=== PATIENT | male | born 1955 | race Caucasian/White ===

== ENCOUNTER 2019-01-03 01:11 | Observation (INO) | payer MEDICAID, OTHER ==
[~2019-01-03] VITALS: Ht 193 cm; Wt 106.8 kg
[2019-01-03] VITALS (17 sets, daily range): BP systolic 144–195; BP diastolic 9–106
[2019-01-03] MEDS ORDERED: aspirin 81mg tab.chew PO ONE (01:20)
[2019-01-03] MEDS ORDERED: ondansetron/PF 4mg/2ml inj IV ONE (01:25)
[2019-01-03] MEDS ORDERED: morphine 4 MG/ML inj SYRINge IV ONE (01:25)
[2019-01-03] MEDS ORDERED: CLOP75TA15 PO (01:31)
[2019-01-03] MEDS ORDERED: HYDR-3972 PO (01:31)
[2019-01-03] MEDS ORDERED: HYDR8TAB16 PO (01:31)
[2019-01-03] MEDS ORDERED: BUDE10.2 INH (01:31)
[2019-01-03] MEDS ORDERED: AMLO5TAB4 PO (01:31)
[2019-01-03] MEDS ORDERED: ASPI81TA52 PO (01:31)
[2019-01-03] MEDS ORDERED: ALB0.5UD IH (01:31)
[2019-01-03] MEDS ORDERED: CARV-49 PO (01:31)
[2019-01-03] MEDS ORDERED: ISOS30TA6 PO (01:31)
[2019-01-03 02:02] LABS: ALANINE AMINOTRANSFERASE 24 U/L (12-78); ALBUMIN 3.9 G/DL (3.4-5.0); ALKALINE PHOSPHATASE 125 IU/L (46-116); ANION GAP 10 (8-16); ASPARTATE AMINO TRANSFERASE 22 U/L (10-37); BILIRUBIN,TOTAL 0.6 MG/DL (0.1-1.0); BLOOD UREA NITROGEN 7 MG/DL (7-18); BUN/CREATININE RATIO 7.9 (5.4-32.0); CALCIUM 8.5 MG/DL (8.5-10.1); CHLORIDE 106 MMOL/L (99-107); CREATININE 0.89 MG/DL (0.60-1.10); GLUCOSE 87 MG/DL (70-104); POTASSIUM 4.3 MMOL/L (3.5-5.1); SODIUM 141 MMOL/L (135-145); TOTAL CARBON DIOXIDE 25.3 MMOL/L (24-32); TOTAL PROTEIN 7.7 G/DL (6.4-8.2); eGFR 87 ML/MIN
[2019-01-03 02:09] LABS: MAGNESIUM 2.1 MG/DL (1.5-2.4)
[2019-01-03] MEDS ORDERED: metoprolol tartrate 1mg/ml inj IV PRN (02:15)
[2019-01-03] MEDS ORDERED: magnesium 4gm in 100ml NS 100 ML IV PRN (02:15)
[2019-01-03] MEDS ORDERED: nitroGLYCERIN 0.4mg SUBLingual tab SL PRN (02:15)
[2019-01-03] MEDS ORDERED: morphine 2 MG/ML inj. syringe IV PRN (02:15)
[2019-01-03] MEDS ORDERED: magnesium hydroxide 30ml (MOM) UD suspension PO PRN (02:15)
[2019-01-03] MEDS ORDERED: aminophylline 250mg/10ml inj. IV PRN (02:15)
[2019-01-03] MEDS ORDERED: normal saline 1000ml 1,000 ML IV SCH (02:15)
[2019-01-03] MEDS ORDERED: magnesium 2GM in 50ml NS 50 ML IV PRN (02:15)
[2019-01-03] MEDS ORDERED: potassium Cl 20 mEq SR tablet PO PRN ×2 (02:15)
[2019-01-03] MEDS ORDERED: metoclopramide 5 mg/ml inj IV PRN (02:15)
[2019-01-03] MEDS ORDERED: regadenoson 0.4mg/5ml syringe IV ONE (02:15)
[2019-01-03] MEDS ORDERED: nitroGLYCERIN-Tridil 50MG/D5W 250 ML IV SCH ×2 (02:15→02:20)
[2019-01-03] MEDS ORDERED: potassium CL 10mEq/100ml bag 100 ML IV PRN ×2 (02:15)
[2019-01-03] MEDS ORDERED: acetaminophen 325mg tablet PO PRN ×2 (02:15)
[2019-01-03] MEDS ORDERED: ondansetron/PF 4mg/2ml inj IV PRN (02:15)
[2019-01-03] MEDS ORDERED: magnesium Cl slow-release 64mg tablet PO PRN (02:15)
[2019-01-03] MEDS ORDERED: mag hydrox/Alum hydrox/simeth 30ml oral suspension PO PRN (02:15)
[2019-01-03 02:21] LABS: BASOPHILS # (AUTO) 0.1 X10'3 (0-0.2); BASOPHILS % (AUTO) 1.3 % (0-1); EOSINOPHILS % (AUTO) 0.6 % (0-6); HEMATOCRIT 37.1 % (42.0-52.0); HEMOGLOBIN 12.9 g/dl (14.0-17.9); LYMPHOCYTES # (AUTO) 1.6 X10'3 (1.1-4.8); LYMPHOCYTES % (AUTO) 26.5 % (21-51); MEAN CORPUSCULAR HEMOGLOBIN 34.1 PG (27.0-31.0); MEAN CORPUSCULAR HGB CONC 34.9 g/dL (33.0-36.5); MEAN CORPUSCULAR VOLUME 97.9 FL (78-98); MEAN PLATELET VOLUME 6.1 FL (7.4-10.4); MONOCYTES # (AUTO) 0.5 X10'3 (0-0.9); NEUTROPHILS # (AUTO) 3.8 X10'3 (1.8-7.7); NEUTROPHILS % (AUTO) 62.6 % (42-75); PLATELET COUNT 258 X10'3 (140-440); RED BLOOD COUNT 3.79 X10'6 (4.70-6.10); RED CELL DISTRIBUTION WIDTH 13.4 % (11.5-14.5)
[2019-01-03] MEDS ORDERED: HYDROcodone/acetaminophen 10/325mg tab PO PRN (02:45)
--- NOTE | 2019-01-03 02:48 | NUR ---
put pt into a gown got him a warm blanket and closed the door.
[2019-01-03] MEDS: morphine 2 MG/ML inj. syringe IV PRN ×2 (03:35→10:20)
[2019-01-03 03:41] LABS: CHOL/HDL RATIO 2.2 (0.00-4.99); CHOLESTEROL 192 MG/DL (0-200); HDL CHOLESTEROL 86 MG/DL (35-60); LDL CHOLESTEROL 94 MG/DL (50-100); PHOSPHORUS 3.1 MG/DL (2.3-4.5); TRIGLYCERIDES 54 MG/DL (20-135)
[2019-01-03] MEDS ORDERED: HYDROmorphone 2mg tablet PO PRN (05:10)
--- NOTE | 2019-01-03 06:42 | NUR ---
Patient in room PCU 3017. I have received report from Rip HARRIS, and had the opportunity to ask questions and assume patient care. Patient awake in bed. All immediate needs met.
--- NOTE | 2019-01-03 06:42 | NUR ---
Patient in room PCU 3017. I have received report from Rip HARRIS and had the opportunity to ask questions and assume patient care. Patient stable at transfer of care.
[2019-01-03] MEDS ORDERED: carvedilol 6.25mg tablet PO SCH (08:00)
[2019-01-03] MEDS ORDERED: K and/or MAG REPLACEMENT MC SCH (08:00)
[2019-01-03] MEDS ORDERED: isosorbide mononitrate 30mg tab.SR.24H PO SCH (08:00)
[2019-01-03] MEDS ORDERED: enoxaparin 40mg/0.4ml syringe SUBCUT SCH (08:00)
[2019-01-03] MEDS ORDERED: amLODIPine 5mg tablet PO SCH (08:00)
[2019-01-03] MEDS ORDERED: budesonide 0.5mg/2ml UD nebule IH SCH (08:00)
[2019-01-03] MEDS ORDERED: aspirin 81mg tablet.DR PO SCH (08:00)
[2019-01-03] MEDS ORDERED: clopidogrel 75mg tablet PO SCH (08:00)
[2019-01-03] MEDS: albuterol 2.5 MG/3 ML nebule NEB SCH ×2 (08:12→13:32)
--- NOTE | 2019-01-03 08:46 | NUR ---
Per Dr. Schneider discontinue nitro gtt.
[2019-01-03] MEDS ORDERED: CLON-528 PO (09:09)
[2019-01-03] MEDS ORDERED: clonazePAM 1mg tablet PO ONE ×2 (09:20→09:35)
--- NOTE | 2019-01-03 11:53 | NUR ---
PAGER ID: [phone] MESSAGE: RE: Sergey Buitrago [id number]. Patient cath report from [facility] is in front of chart for you to review. Thank you. Pam [phone]
--- NOTE | 2019-01-03 16:54 | NUR ---
[facility] documentation: I have reviewed and agree with all interventions, assessments performed and documented by STEVEN Ignacio. [facility] Medication Administration: For this medication-pass time frame, all medication were reviewed, dispensed, administered and documented per hospital policy by STEVEN Ignacio.
[2019-01-03] MEDS ORDERED: temazepam 15mg capsule PO PRN (21:00)
== END 2019-01-03 15:22 | disposition home or self-care (01) ==
LOC: ER 01:12 → PCU 3S 03:25
PROVIDERS: ADMIT Family Medicine; ATTEND Family Medicine
DX: I25.119 Atherosclerotic heart disease of native coronary artery with unspecified angina pectoris (principal); I10 Essential (primary) hypertension; G89.4 Chronic pain syndrome; E78.00 Pure hypercholesterolemia, unspecified; Z86.73 Personal history of transient ischemic attack (TIA), and cerebral infarction without residual deficits; Z86.711 Personal history of pulmonary embolism; Z86.718 Personal history of other venous thrombosis and embolism; Z95.1 Presence of aortocoronary bypass graft; Z90.49 Acquired absence of other specified parts of digestive tract; Z79.899 Other long term (current) drug therapy; Z79.02 Long term (current) use of antithrombotics/antiplatelets; Z79.82 Long term (current) use of aspirin; Z88.6 Allergy status to analgesic agent; Z88.8 Allergy status to other drugs, medicaments and biological substances
CPT/HCPCS: 36415; 71045; 78452; 80053; 80061; 83735; 83880; 84100; 84484; 85025; 87081; 93005; 93017; 93306; 94640; 94760; 96365; 96372; 96375; 96376; 99284; A9500; G0378; J0280; J2270; J2405; J2785; J7030; J1650; J3490; J7626